=== PATIENT | male | born 2000 | race Caucasian/White ===

== ENCOUNTER 2025-02-11 06:31 | Emergency (ER) | payer OTHER, SELFPAY ==
[2025-02-11] MEDS ORDERED: Bacitracin 1 PK ONE (07:47)
[2025-02-11] MEDS ORDERED: Ibuprofen 200 MG TAB ONE (07:47)
== END 2025-02-11 08:02 | disposition home or self-care (01) ==
LOC: CSHERS 06:31
DX: T23.411A Corrosion of unspecified degree of right thumb (nail), initial encounter (principal); K08.89 Other specified disorders of teeth and supporting structures; K02.9 Dental caries, unspecified; J32.9 Chronic sinusitis, unspecified; Z55.6 Problems related to health literacy; Z23 Encounter for immunization; Y93.E9 Activity, other interior property and clothing maintenance
CPT/HCPCS: 90471; 90715